=== PATIENT | female | born 1940 | race Caucasian/White ===

== ENCOUNTER 2024-08-14 13:40 | Emergency (ER) | payer MEDICARE, OTHER ==
[~2024-08-14] VITALS: Ht 152.4 cm; Wt 54.4 kg
[2024-08-14 13:42] VITALS: TEMP 36.7; O2SAT 94
[2024-08-14 14:37] LABS: BASOPHILS % 0.4 % (0.0-2.0); HEMATOCRIT. 40.2 % (36.0-48.0); HEMOGLOBIN. 13.4 g/dL (12.0-16.0); LYMPHOCYTES % 34.5 % (20.0-50.0); MEAN CORPUSCULAR HEMOGLOBIN 30.3 pg (28.0-32.0); MEAN CORPUSCULAR HGB CONC 33.4 g/dL (31.0-37.0); MEAN CORPUSCULAR VOLUME 90.9 fL (81.0-99.0); MEAN PLATELET VOLUME 7.7 fl (7.4-10.4); MONOCYTES % 6.8 % (2.0-8.0); NEUTROPHILS % 57.3 % (40.0-76.0); PLATELET 181 x1000/uL (130-400); RED BLOOD CELL COUNT 4.43 mill/uL (4.2-5.4); RED CELL DISTRIBUTION WIDTH 13.7 % (11.6-14.6); WHITE BLOOD COUNT 7.6 x1000/uL (4.5-11.0)
[2024-08-14] MEDS: IBUPROFEN 600MG TABLET PO ONE (14:40)
[2024-08-14 14:42] LABS: CHLORIDE 106 mEq/L (98-107); POTASSIUM 3.6 mEq/L (3.5-5.1); SODIUM 140 mEq/L (136-145)
[2024-08-14 14:43] LABS: CALCIUM 9.1 mg/dL (8.7-10.4); CARBON DIOXIDE 26 mEq/L (21-32)
[2024-08-14 14:48] LABS: CREATININE 0.6 mg/dL (0.6-1.0); GLUCOSE 150 mg/dL (70-105); UREA NITROGEN BLOOD 12 mg/dL (9-23)
[2024-08-14] MEDS: HYDROCODONE/ACETAMINOPHEN 5/325MG TABLET PO ONE (16:42)
[2024-08-14] MEDS: TETANUS, DIPHTHERIA, PERTUSSIS VAC/PF 0.5ML (>10YR OLD) IM ONE (16:46)
[2024-08-14] MEDS ORDERED: HYDR-4001 MT (17:17)
[2024-08-14] MEDS ORDERED: IBUP-2029 PO (17:17)
[2024-08-14 17:40] VITALS: BP 167/90; PULSE 100; RESP 14; O2SAT 93
== END 2024-08-14 18:03 | disposition home or self-care (01) ==
LOC: ER 13:40 → EDBEDREQ 16:29 → ER 18:03
DX: S42.301A Unspecified fracture of shaft of humerus, right arm, initial encounter for closed fracture (principal); E78.00 Pure hypercholesterolemia, unspecified; Z98.890 Other specified postprocedural states; W01.0XXA Fall on same level from slipping, tripping and stumbling without subsequent striking against object, initial encounter; Y93.01 Activity, walking, marching and hiking; Y99.8 Other external cause status; Y92.89 Other specified places as the place of occurrence of the external cause
CPT/HCPCS: 36415; 71045; 73060; 73090; 73100; 80048; 85025; 90471; 90715; 99285; A4606

== ENCOUNTER 2024-08-16 14:17 | Emergency (ER) | payer MEDICARE, OTHER ==
[~2024-08-16] VITALS: Ht 162.6 cm; Wt 80.0 kg
[~2024-08-16 14:17] MED LIST: HYDR-4001 MT; IBUP-2029 PO
[2024-08-16] MEDS ORDERED: HYDR-4001 MT (16:03)
[2024-08-16 16:28] VITALS: PULSE 87
[2024-08-16] MEDS: HYDROCODONE/ACETAMINOPHEN 5/325MG TABLET PO ONE (16:28)
== END 2024-08-16 19:25 | disposition home or self-care (01) ==
LOC: ER 14:17
DX: S42.391A Other fracture of shaft of right humerus, initial encounter for closed fracture (principal); S52.021A Displaced fracture of olecranon process without intraarticular extension of right ulna, initial encounter for closed fracture; E78.00 Pure hypercholesterolemia, unspecified; X58.XXXA Exposure to other specified factors, initial encounter; Y93.89 Activity, other specified; Y92.89 Other specified places as the place of occurrence of the external cause; Y99.8 Other external cause status
CPT/HCPCS: 99283; 29105; 73060; A6449